=== PATIENT | male | born 2000 | race Caucasian/White ===

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

== ENCOUNTER 2018-07-18 16:11 | Emergency (ER) ==
[2018-07-18 16:17] VITALS: BP 136/79; TEMP 98.9; BMI 29.9
--- NOTE | 2018-07-18 16:21 | ED.PDOC ---
General ED Provider: Dr. MAGEN MCGOWAN Chief Complaint: Burn Stated Complaint: [place] to fingers both hands Time Seen by Physician: 16:20 Mode of Arrival: Walk-In Information Source: Patient Exam Limitations: No limitations Nursing and Triage Documentation Reviewed and Agree: Yes Does patient meet sepsis criteria?: No System Inflammatory Response Syndrome: Not Applicable Sepsis Protocol: For patient's 13 years and over: Temp is 96.8 and below OR 101 and greater Pulse >90 BPM Resp >20/minute Acutely Altered Mental Status Are patient's symptoms suggestive of a new infection, such as: -Pneumonia -Skin, Soft Tissue -Endocarditis -UTI -Bone, Joint Infection -Implantable Device -Acute Abdominal Infection -Wound Infection -Meningitis -Blood Stream Catheter Infection -Unknown Skin Complaint Exam - Burn Injury Complaint/Exam Onset/Duration: 1 hr Initial Severity: Moderate Current Severity: Moderate Location: RUE (Burn 1st 4th digits), LUE (Hand and digits) Aggravating: Reports: Unknown Alleviating: Reports: None Associated Signs and Symptoms: Denies: Short of air, Cough, Chest pain, Vision abnormality, LOC/Duration, Additional trauma Skin: Dry Singed Facial Hair: No Singed Nasal Hair: No Stridor Present: No Circumferential Involvement to Trunk: No Entrance Wound Present: No Exit Wound Present: No Review of Systems - Review Of Systems Constitutional: Reports: No symptoms Eyes: Reports: No symptoms Ears, Nose, Mouth, Throat: Reports: No symptoms Respiratory: Reports: No symptoms Cardiac: Reports: No symptoms GI: Reports: No symptoms : Reports: No symptoms Musculoskeletal: Reports: No symptoms Skin: Reports: No symptoms Neurological: Reports: No symptoms Endocrine: Reports: No symptoms Hematologic/Lymphatic: Reports: No symptoms All Other Systems: Reviewed and Negative Past Medical History - Past Medical History Previously Healthy: Yes Endocrine: Reports: Unknown Cardiovascular: Reports: Unknown Respiratory: Reports: Unknown Hematological: Reports: Unknown Gastrointestinal: Reports: Unknown Genitourinary: Reports: Unknown Neuro/Psych: Reports: Unknown Musculoskeletal: Reports: Unknown Cancer: Reports: Unknown - Surgical History General Surgical History: Reports: Unknown - Family History Family History: Reports: Unknown - Social History Smoking Status: Current every day smoker Hx Substance Use: No Alcohol Screening: None - Immunizations Tetanus Shot up to Date: Yes (all school shots) Physical Exam - Physical Exam Appearance: Well-appearing, No pain distress, Well-nourished, Obese Ill-appearing: None Pain Distress: Moderate Eyes: ALFRED, EOMI, Conjunctiva clear ENT: Ears normal, Nose normal, Oropharynx normal Respiratory: Airway patent, Breath sounds clear, Breath sounds equal, Respirations nonlabored Cardiovascular: RRR, Pulses normal, No rub, No murmur GI/: Soft, Nontender, No masses, Bowel sounds normal, No Organomegaly Musculoskeletal: Normal strength, ROM intact, No edema, No calf tenderness Skin: Warm, Dry, Normal color Neurological: Sensation intact, Motor intact, Reflexes intact, Cranial nerves intact, Alert, Oriented Psychiatric: Affect appropriate, Mood appropriate Re-Evaluation - Re-Evaluation Time of Re-Evaluation: 16:50 Status: Improved Vital Signs Stable: Yes Appearance: NAD Lungs: Clear Skin: Other (Dressings both hands) Neuro: Alert and Oriented X3 CV: RRR Critical Care Note - Critical Care Note Total Time (mins): 0 Course - Course Orders, Labs, Meds: Orders Category Date Time Status Morphine Sulfate [Morphine 4 mg/ml Syringe] MEDS 07/18/18 16:22 Discontinued 4 mg IM ONCE STA Silver Sulfadiazine [Silvadene Cream] MEDS 07/18/18 16:25 Discontinued 1 applic TP ONCE STA Medications Discontinued Medications Generic Name Dose Route Start Last Admin Trade Name Jb PRN Reason Stop Dose Admin Morphine Sulfate 4 mg 07/18/18 16:22 07/18/18 16:34 Morphine 4 Mg/Ml Syringe IM 07/18/18 16:23 4 mg ONCE STA Administration Silver Sulfadiazine 1 applic 07/18/18 16:25 07/18/18 16:35 Silvadene Cream TP 07/18/18 16:26 1 applic ONCE STA Administration Vital Signs: Temp Pulse Resp BP Pulse Ox 07/18/18 16:11 98.9 F 94 H 20 136/79 98 Departure - Departure Time of Disposition: 17:00 Disposition: HOME SELF-CARE Discharge Problem: First degree burn multiple fingers right hand not including thumb, First degree burn of left hand including fingers Instructions: Superficial Burn (ED), Acute Wounds (ED) Condition: Stable Pt referred to PMD for follow-up: Yes (1 week) IPMP verified?: No Additional Instructions: Take Ibuprofen 2-3 tabs 200 mg strength every 6 hrs as needed Rx [place] for severe pain Dressing changes as directed with Silvadend Prescriptions: Hydrocodone Bit/Acetaminophen [[place] 5-325] 1 each PO Q6HR PRN #10 tablet PRN Reason: severe burn pain Allergies/Adverse Reactions: Allergies cefprozil [From Cefzil] Adverse Reaction (Verified 07/18/18 16:14) Home Medications: Ambulatory Orders Hydrocodone Bit/Acetaminophen [[place] 5-325] 1 each PO Q6HR PRN #10 tablet Disposition Discussed With: Patient
[2018-07-18] MEDS ORDERED: MORPHINE 4 MG/ML SYRINGE IM STA (16:22)
[2018-07-18] MEDS ORDERED: SILVADENE CREAM TP STA (16:25)
== END 2018-07-18 17:37 | disposition home or self-care (01) ==
LOC: ED 16:11
DX: T23.132A Burn of first degree of multiple left fingers (nail), not including thumb, initial encounter (principal); T23.131A Burn of first degree of multiple right fingers (nail), not including thumb, initial encounter
CPT/HCPCS: 96372; 99283

== ENCOUNTER 2018-08-10 16:41 | Emergency (ER) ==
[2018-08-10 16:47] VITALS: BP 145/82; TEMP 98.5; BMI 30.2
--- NOTE | 2018-08-10 17:13 | ED.PDOC ---
General ED Provider: Dr. MAGEN AHUJA MD Chief Complaint: Laceration Stated Complaint: left thumb sq laceration Time Seen by Physician: 17:00 Mode of Arrival: Walk-In Information Source: Patient Exam Limitations: No limitations Primary Care Provider: BENITO KNIGHT Nursing and Triage Documentation Reviewed and Agree: Yes Does patient meet sepsis criteria?: No If yes, has appropriate treatment been initiated?: Yes System Inflammatory Response Syndrome: Not Applicable Sepsis Protocol: For patient's 13 years and over: Temp is 96.8 and below OR 101 and greater Pulse >90 BPM Resp >20/minute Acutely Altered Mental Status Are patient's symptoms suggestive of a new infection, such as: -Pneumonia -Skin, Soft Tissue -Endocarditis -UTI -Bone, Joint Infection -Implantable Device -Acute Abdominal Infection -Wound Infection -Meningitis -Blood Stream Catheter Infection -Unknown Review of Systems - Review Of Systems Constitutional: Reports: No symptoms Eyes: Reports: No symptoms Ears, Nose, Mouth, Throat: Reports: No symptoms Respiratory: Reports: No symptoms Cardiac: Reports: No symptoms GI: Reports: No symptoms : Reports: No symptoms Musculoskeletal: Reports: No symptoms Skin: Reports: No symptoms Neurological: Reports: No symptoms Endocrine: Reports: No symptoms Hematologic/Lymphatic: Reports: No symptoms All Other Systems: Reviewed and Negative Past Medical History - Past Medical History Previously Healthy: Yes Endocrine: Reports: Unknown Cardiovascular: Reports: Unknown Respiratory: Reports: Unknown Hematological: Reports: Unknown Gastrointestinal: Reports: Unknown Genitourinary: Reports: Unknown Neuro/Psych: Reports: Unknown Musculoskeletal: Reports: Unknown Cancer: Reports: Unknown - Surgical History General Surgical History: Reports: Unknown - Family History Family History: Reports: Unknown - Social History Smoking Status: Current every day smoker, Light tobacco smoker Hx Substance Use: No Alcohol Screening: None - Immunizations Tetanus Shot up to Date: No Physical Exam - Physical Exam Appearance: Well-appearing, No pain distress, Well-nourished, Obese Eyes: ALFRED, EOMI, Conjunctiva clear ENT: Ears normal, Nose normal, Oropharynx normal Respiratory: Airway patent, Breath sounds clear, Breath sounds equal, Respirations nonlabored Cardiovascular: RRR, Pulses normal, No rub, No murmur GI/: Soft, Nontender, No masses, Bowel sounds normal, No Organomegaly Musculoskeletal: Normal strength, ROM intact, No edema, No calf tenderness Skin: Warm (small 2cm superficial lac), Dry, Normal color Neurological: Sensation intact, Motor intact, Reflexes intact, Cranial nerves intact, Alert, Oriented Psychiatric: Affect appropriate, Mood appropriate Procedures - Laceration/Wound Repair laceration Wound Length (cm): 2 Wound Depth: sq Wound Explored: Clean Wound Irrigated: Yes Wound Repaired With: Steri-strips Critical Care Note - Critical Care Note Total Time (mins): 0 Course - Course Vital Signs: Temp Pulse Resp BP Pulse Ox 08/10/18 16:41 98.5 F 89 16 145/82 H 97 Departure - Departure Time of Disposition: 17:40 Disposition: HOME SELF-CARE Discharge Problem: Laceration of thumb Qualifiers: Encounter type: initial encounter Damage to nail status: unspecified Foreign body presence: without foreign body Laterality: right Qualified Code(s): S61.011A - Laceration without foreign body of right thumb without damage to nail , initial encounter Instructions: Finger Laceration (ED) Condition: Stable Pt referred to PMD for follow-up: Yes IPMP verified?: No Additional Instructions: Follow up with your PCP Keep area clean and dry Allergies/Adverse Reactions: Allergies cefprozil [From Cefzil] Adverse Reaction (Verified 08/10/18 16:47) Home Medications: Ambulatory Orders 1 [No Reported Medications] 08/10/18 Transfer Form Completed: No Disposition Discussed With: Patient
== END 2018-08-10 17:47 | disposition home or self-care (01) ==
LOC: ED 16:41
DX: S61.012A Laceration without foreign body of left thumb without damage to nail, initial encounter (principal); F17.210 Nicotine dependence, cigarettes, uncomplicated
CPT/HCPCS: 99283